=== PATIENT | female | born 1995 | race Caucasian/White ===

== ENCOUNTER 2023-09-24 18:51 | Emergency (ER) | payer MEDICAID ==
[~2023-09-24] VITALS: Ht 167.6 cm; Wt 79.0 kg
[2023-09-24 18:59] VITALS: TEMP 98.4; O2SAT 100
[2023-09-24 19:28] LABS: CLARITY URINE TURBID (CLEAR); COLOR URINE YELLOW (YELLOW); GLUCOSE URINE NEGATIVE (NEGATIVE); KETONES URINE NEGATIVE (NEGATIVE); LEUKOCYTE ESTERASE URINE 3+ (NEGATIVE); NITRITE URINE POSITIVE (NEGATIVE); OCCULT BLOOD URINE 1+ (NEGATIVE); PROTEIN URINE 2+ (NEGATIVE); SPECIFIC GRAVITY URINE 1.017 (1.005-1.030); UROBILINOGEN URINE 0.2 E.U./dL (0.2-1.0)
[2023-09-24] MEDS ORDERED: NITR100C MT (19:31)
[2023-09-24 19:50] VITALS: BP 128/71; PULSE 104; RESP 16
[2023-09-24 19:53] LABS: BACTERIA URINE 3+; SQUAMOUS EPITHELIAL CELL URINE 1+ /lpf (RARE/1+); WBC URINE TNTC /hpf (0-2)
== END 2023-09-24 19:51 | disposition home or self-care (01) ==
LOC: ER 18:51
DX: N39.0 Urinary tract infection, site not specified (principal); R35.0 Frequency of micturition; K21.9 Gastro-esophageal reflux disease without esophagitis; Z88.0 Allergy status to penicillin
CPT/HCPCS: 81003; 81025; 87077; 87186; 99283

== ENCOUNTER 2023-11-27 05:30 | Emergency (ER) | payer MEDICAID ==
[~2023-11-27] VITALS: Ht 172.7 cm; Wt 75.0 kg
[~2023-11-27 05:30] MED LIST: NITR100C MT
[2023-11-27 05:59] VITALS: BP 103/81; TEMP 97.9; O2SAT 98
[2023-11-27 06:02] VITALS: PULSE 89; RESP 16
[2023-11-27 06:19] LABS: CLARITY URINE TURBID (CLEAR); COLOR URINE YELLOW (YELLOW); GLUCOSE URINE NEGATIVE (NEGATIVE); KETONES URINE NEGATIVE (NEGATIVE); LEUKOCYTE ESTERASE URINE 3+ (NEGATIVE); NITRITE URINE NEGATIVE (NEGATIVE); OCCULT BLOOD URINE 2+ (NEGATIVE); PH URINE 6.5 (4.5-8.0); PROTEIN URINE 2+ (NEGATIVE); SPECIFIC GRAVITY URINE 1.019 (1.005-1.030); UROBILINOGEN URINE 0.2 E.U./dL (0.2-1.0)
[2023-11-27 06:37] LABS: SQUAMOUS EPITHELIAL CELL URINE FEW /lpf (RARE/1+)
[2023-11-27 06:38] LABS: WBC URINE TNTC /hpf (0-2)
[2023-11-27 06:42] LABS: BACTERIA URINE 4+; RBC URINE 15-25 /hpf (0-2)
[2023-11-27] MEDS ORDERED: CLIN30SO TP (07:54)
[2023-11-27] MEDS ORDERED: NITR100C MT (07:54)
[2023-11-27] MEDS ORDERED: CLIN45GE5 TP (07:58)
== END 2023-11-27 08:11 | disposition home or self-care (01) ==
LOC: ER 05:30
DX: N39.0 Urinary tract infection, site not specified (principal); Z88.0 Allergy status to penicillin
CPT/HCPCS: 81003; 81025; 87077; 87186; 99283